=== PATIENT | female | born 1940 | race Caucasian/White ===

== ENCOUNTER 2018-12-20 19:37 | Emergency (ER) | payer MEDICARE, BC ==
--- NOTE | 2018-12-20 20:09 | EDM.PDOC ---
ED HPI GENERAL MEDICAL PROBLEM - General Chief Complaint: Cardiovascular Problem Stated Complaint: HIGH BP Time Seen by Provider: 12/20/18 20:07 Source of Information: Reports: Patient History Limitations: Reports: No Limitations - History of Present Illness INITIAL COMMENTS - FREE TEXT/NARRATIVE: c/o HBP and some chest heaviness today. presently feels better. Posterior Head Pain Score (Numeric/FACES): 5 - Related Data Allergies Allergy/AdvReac Type Severity Reaction Status Date / Time tizanidine [From Zanaflex] Allergy Itching Verified 12/20/18 20:18 Home Meds: Home Meds Aspirin [Yady Chewable Aspirin] 81 mg PO DAILY 12/20/18 [History] Calcium Carbonate/Vitamin D3 [Calcium 500+D Tablet Chew] 3 tab PO DAILY [History] Cinnamon Bark [Cinnamon] 600 mg PO BID 12/20/18 [History] Cyclobenzaprine [Flexeril] 5 mg PO TID PRN 12/20/18 [History] Levothyroxine [Synthroid] 88 mcg PO DAILY 12/20/18 [History] Lutein/Minerals/Vit A,C & E [Ocuvite] 1 tab PO DAILY 12/20/18 [History] Metoprolol Tartrate [Lopressor] 100 mg PO BID 12/20/18 [History] [place]-3/DHA/Epa/Fish Oil [Fish Oil 1,000 mg Softgel] 1 cap PO DAILY 12/20/18 [ History] Propylene Glycol/PEG 400/Pf [Systane 0.3-0.4% Eye Drop] 1 drop EYEBOTH QID 12/20 [History] cycloSPORINE [Restasis] 1 drop EYEBOTH Q48H 12/20/18 [History] Past Medical History HEENT History: Reports: Impaired Vision Other HEENT History: wears glasses Cardiovascular History: Reports: Hypertension Gastrointestinal History: Reports: Chronic Constipation [employer] OPERATOR History: Reports: Musculoskeletal History: Reports: Arthritis, Neck Pain, Chronic Endocrine/Metabolic History: Reports: Hyperthyroidism Social & Family History - Family History Family Medical History: Noncontributory ED ROS GENERAL - Review of Systems Review Of Systems: ROS reveals no pertinent complaints other than HPI. ED EXAM, GENERAL - Physical Exam Exam: See Below Exam Limited By: No Limitations General Appearance: Alert, WD/WN, Anxious, Mild Distress Eye Exam: Bilateral Eye: PERRL (pupils ER @ 4mm) Ears: Hearing Grossly Normal Throat/Mouth: Normal Voice, No Airway Compromise Head: Atraumatic Neck: Non-Tender, Full Range of Motion Respiratory/Chest: No Respiratory Distress Cardiovascular: Regular Rate, Rhythm GI/Abdominal: Soft, Non-Tender Neurological: Alert, Oriented, Normal Cognition, Normal Gait, No Motor/Sensory Deficits Psychiatric: Anxious Skin Exam: Warm, Dry, Normal Color Lymphatic: No Adenopathy Course - Vital Signs Last Recorded V/S: Last Vital Signs Temp 36.6 C 12/20/18 19:58 Pulse 83 12/20/18 19:58 Resp 18 12/20/18 19:58 BP 183/126 H 12/20/18 19:58 Pulse Ox 98 12/20/18 19:58 - Orders/Labs/Meds Orders: Active Orders 24 hr Category Date Time Status EKG Documentation Completion [RC] URGENT Care 12/20/18 19:59 Active Labs: Laboratory Tests 12/20/18 12/20/18 Range/Units 20:10 20:10 WBC 5.2 (5.0-10.0) 10^3/uL RBC 4.58 (4.2-5.4) 10^6/uL Hgb 13.7 (12.0-16.0) g/dL Hct 41.1 (37.0-47.0) % MCV 89.7 (80-100) fL MCH 29.9 (27.0-34.0) pg MCHC 33.3 (33.0-35.0) g/dL Plt Count 200 (150-450) 10^3/uL Neut % (Auto) 45.0 (42.2-75.2) % Lymph % (Auto) 37.8 (20.5-50.1) % [place] % (Auto) 11.8 H (2-8) % Eos % (Auto) 4.6 H (1.0-3.0) % Baso % (Auto) 0.8 (0.0-1.0) % Sodium 138 (135-145) mmol/L Potassium 3.5 L (3.6-5.0) mmol/L Chloride 103 (101-111) mmol/L Carbon Dioxide 27.0 (21.0-31.0) mmol/L Anion Gap 11.5 BUN 13 (7-18) mg/dL Creatinine 0.6 (0.6-1.3) mg/dL Est Cr Clr Drug Dosing 58.75 mL/min Estimated GFR (MDRD) > 60 BUN/Creatinine Ratio 21.66 Glucose 151 H (74-105) mg/dL Calcium 8.9 (8.4-10.2) mg/dl Total Bilirubin 0.5 (0.2-1.0) mg/dL AST 30 (10-42) IU/L ALT 37 (10-60) IU/L Alkaline Phosphatase 82 (42-121) IU/L Troponin I < 0.02 (0.00-0.02) ng/ml Total Protein 6.8 (6.7-8.2) g/dl Albumin 4.1 (3.2-5.5) g/dl Globulin 2.7 Albumin/Globulin Ratio 1.52 - Re-Assessments/Exams Free Text/Narrative Re-Assessment/Exam: 12/20/18 21:25 results discussed with pt who is conversing with niece. rpt 148/82 Departure - Departure Time of Disposition: 21:35 Disposition: Home, Self-Care 01 Condition: Good Clinical Impression: Hypertension Qualifiers: Hypertension type: unspecified secondary hypertension Qualified Code(s): I15.9 - Secondary hypertension, unspecified Instructions: Hypertension, [id number] Forms: ED Department Discharge Additional Instructions: 1) follow up with family doctor tomorrow 2) recheck if there is any change or concern - My Orders Last 24 Hours: My Active Orders 12/20/18 19:59 EKG Documentation Completion [RC] URGENT - Assessment/Plan Last 24 Hours: My Active Orders 12/20/18 19:59 EKG Documentation Completion [RC] URGENT
[2018-12-20 20:35] LABS: ANION GAP 11.5; CHLORIDE,CL 103 mmol/L (101-111); SODIUM,NA 138 mmol/L (135-145)
== END 2018-12-20 21:35 | disposition home or self-care (01) ==
LOC: DL.ED 19:37
DX: I15.9 Secondary hypertension, unspecified (principal); E05.90 Thyrotoxicosis, unspecified without thyrotoxic crisis or storm; Z79.899 Other long term (current) drug therapy; Z79.82 Long term (current) use of aspirin; Z88.8 Allergy status to other drugs, medicaments and biological substances
CPT/HCPCS: 36415; 71045; 80053; 84484; 85025; 93005; 99283-25

== ENCOUNTER 2020-02-03 15:02 | Emergency (ER) | payer MEDICARE, BC ==
[2020-02-03 16:05] LABS: ANION GAP 12.5 mEq/L (7-13); CHLORIDE,CL 102 mmol/L (98-107); SODIUM,NA 139 mmol/L (136-145)
--- NOTE | 2020-02-03 16:07 | CR ---
PROCEDURE INFORMATION: Exam: XR Chest, 1 View Exam date and time: 02/03/2020 3:33 PM Age: 79 years old Clinical indication: Chest pain; Type not specified TECHNIQUE: Imaging protocol: XR of the chest Views: 1 view. COMPARISON: CR Chest 1V Frontal 12/20/2018 8:56 PM FINDINGS: Lungs: Unremarkable. No consolidation. Pleural space: Unremarkable. No pleural effusion. No pneumothorax. Heart/Mediastinum: Mild cardiomegaly. Vasculature: Tortuous thoracic aorta. Bones/joints: Unremarkable. IMPRESSION: No acute process
--- NOTE | 2020-02-03 16:22 | EDM.PDOC ---
ED HPI GENERAL MEDICAL PROBLEM - General Chief Complaint: Chest Pain Stated Complaint: LIGHT CHEST PAINS Time Seen by Provider: 02/03/20 15:50 Source of Information: Reports: Patient, RN, RN Notes Reviewed History Limitations: Reports: No Limitations - History of Present Illness INITIAL COMMENTS - FREE TEXT/NARRATIVE: Patient presents to the ED via personal vehicle with complaints of chest pain. Per patient report, the pain in her chest started this morning. She describes this pain as a pressure which is localized to the midline chest, it does not radiate. She denies palpitations, shortness of breath, vision changes, cough, sore throat, fever, shaking chills, dyspepsia, nausea, vomiting, or diarrhea. She does attest to dysuria without hematuria. She states she has not taken any medications for this chest pain, with the exception of her normally prescribed medications. She states she has experienced this pain before. She denies any cardiac interventions, but does note she has had left heart catheterizations. Mid-Sternal Chest Pain Score (Numeric/FACES): 4 - Related Data Allergies Allergy/AdvReac Type Severity Reaction Status Date / Time tizanidine [From Zanaflex] Allergy Itching Verified 12/20/18 20:18 Home Meds: Home Meds Aspirin [Yady Chewable Aspirin] 81 mg PO DAILY 12/20/18 [History] Calcium Carbonate/Vitamin D3 [Calcium 500+D Tablet Chew] 3 tab PO DAILY 12/20/18 [History] Cinnamon Bark [Cinnamon] 600 mg PO BID 12/20/18 [History] Cyclobenzaprine [Flexeril] 5 mg PO TID PRN 12/20/18 [History] Levothyroxine [Synthroid] 88 mcg PO DAILY 12/20/18 [History] Lutein/Minerals/Vit A,C & E [Ocuvite] 1 tab PO DAILY 12/20/18 [History] Metoprolol Tartrate [Lopressor] 100 mg PO BID 12/20/18 [History] [place]-3/DHA/Epa/Fish Oil [Fish Oil 1,000 mg Softgel] 1 cap PO DAILY 12/20/18 [History] Propylene Glycol/PEG 400/Pf [Systane 0.3-0.4% Eye Drop] 1 drop EYEBOTH QID 12/20/18 [History] cycloSPORINE [Restasis] 1 drop EYEBOTH Q48H 12/20/18 [History] Past Medical History HEENT History: Reports: Impaired Vision Other HEENT History: wears glasses Cardiovascular History: Reports: Hypertension Gastrointestinal History: Reports: Chronic Constipation [employer] WORKER History: Reports: Musculoskeletal History: Reports: Arthritis, Neck Pain, Chronic Endocrine/Metabolic History: Reports: Hyperthyroidism Social & Family History - Family History Family Medical History: Noncontributory - Tobacco Use Tobacco Use Status *Q: Never Tobacco User Second Hand Smoke Exposure: No - Caffeine Use Caffeine Use: Reports: Coffee - Recreational Drug Use Recreational Drug Use: No ED ROS GENERAL - Review of Systems Review Of Systems: Comprehensive ROS is negative, except as noted in HPI. ED EXAM, GENERAL - Physical Exam Exam: See Below Exam Limited By: No Limitations General Appearance: Alert, WD/WN, No Apparent Distress Eye Exam: Bilateral Eye: EOMI, Normal Inspection, PERRL Throat/Mouth: Normal Inspection, Normal Voice, No Airway Compromise Neck: Normal Inspection, Supple, Non-Tender, Full Range of Motion Respiratory/Chest: No Respiratory Distress, Lungs Clear, Normal Breath Sounds, No Accessory Muscle Use, Chest Non-Tender Cardiovascular: Normal Peripheral Pulses, Regular Rate, Rhythm, No Edema, No Gallop, No JVD, No Murmur, No Rub Peripheral Pulses: 2+: Radial (L), Radial (R) GI/Abdominal: Normal Bowel Sounds, Soft, No Distention, No Mass, Pelvis Stable, Tender (Suprapubic tenderness) (Female) Exam: Deferred Rectal (Female) Exam: Deferred Back Exam: Normal Inspection, Full Range of Motion. No: CVA Tenderness (L), CVA Tenderness (R) Extremities: Normal Inspection, Normal Range of Motion, Non-Tender, No Pedal Edema, Normal Capillary Refill Neurological: Alert, Oriented, CN II-XII Intact, Normal Cognition, Normal Gait, No Motor/Sensory Deficits Psychiatric: Normal Affect, Normal Mood Skin Exam: Warm, Dry, Intact, Normal Color, No Rash. No: Ecchymosis, Erythema, Mottled, Pallor, Petechiae, Rash #1 Interpretation EKG Date: 02/03/20 Time: 15:13 Rhythm: NSR Rate (Beats/Min): 75 [place]: Normal P-Wave: Present QRS: Normal ST-T: Depressed (Minimal depression in V4, V5) QT: Normal Comparison: No Change EKG Interpretation Comments: SR; S-wave present in aVL and V6; No evidence of acute ischemia. Course - Vital Signs Last Recorded V/S: Last Vital Signs Temp 98.5 F 02/03/20 21:34 Pulse 78 02/03/20 21:34 Resp 20 02/03/20 21:34 BP 154/92 H 02/03/20 21:34 Pulse Ox 93 L 02/03/20 21:34 - Orders/Labs/Meds Orders: Active Orders 24 hr Category Date Time Status CULTURE URINE [RM] Stat Lab 02/03/20 15:13 Received Labs: Laboratory Tests 02/03/20 02/03/20 02/03/20 Range/Units 15:13 15:21 15:21 WBC 11.2 H (5.0-10.0) 10^3/uL RBC 4.26 (4.2-5.4) 10^6/uL Hgb 13.0 (12.0-16.0) g/dL Hct 38.3 (37.0-47.0) % MCV 89.9 (80-100) fL MCH 30.5 (27.0-34.0) pg MCHC 33.9 (33.0-35.0) g/dL Plt Count 194 (150-450) 10^3/uL Neut % (Auto) 70.5 (42.2-75.2) % Lymph % (Auto) 19.1 L (20.5-50.1) % [place] % (Auto) 8.6 H (2-8) % Eos % (Auto) 1.6 (1.0-3.0) % Baso % (Auto) 0.2 (0.0-1.0) % Sodium (136-145) mmol/L Potassium (3.5-5.1) mmol/L Chloride (98-107) mmol/L Carbon Dioxide (21-32) mmol/L Anion Gap (7-13) mEq/L BUN (7-18) mg/dL Creatinine (0.55-1.02) mg/dL Est Cr Clr Drug Dosing mL/min Estimated GFR (MDRD) BUN/Creatinine Ratio (No establ ref range) Glucose (74-99) mg/dL Lactic Acid 0.6 (0.4-2.0) mmol/L Calcium (8.5-10.1) mg/dL Phosphorus (2.6-4.7) mg/dL Magnesium (1.8-2.4) mg/dL Total Bilirubin (0.2-1.0) mg/dL AST (15-37) U/L ALT (14-59) U/L Alkaline Phosphatase (46-116) U/L Troponin I (0.000-0.056) ng/mL Total Protein (6.4-8.2) g/dL Albumin (3.4-5.0) g/dL Globulin Albumin/Globulin Ratio Urine Color Yellow (YELLOW) Urine Appearance Clear (CLEAR) Urine pH 7.5 (5.0-9.0) Ur Specific [place] 1.020 (1.005-1.030) Urine Protein Negative (NEGATIVE) Urine Glucose (UA) Negative (NEGATIVE) Urine Ketones Negative (NEGATIVE) Urine Occult Blood Trace-intact H (NEGATIVE) Urine Nitrite Negative (NEGATIVE) Urine Bilirubin Negative (NEGATIVE) Urine Urobilinogen 0.2 (0.2-1.0) mg/dL Ur Leukocyte Esterase Small H (NEGATIVE) Urine RBC 10-20 H /HPF Urine WBC 5-10 H (0-5/HPF) /HPF Ur Epithelial Cells Few (NOT SEEN) /HPF Amorphous Sediment Few (NOT SEEN) /HPF Urine Bacteria Few (0-FEW/HPF) /HPF Urine Mucus Rare (NOT SEEN) /LPF 02/03/20 Range/Units 15:21 WBC (5.0-10.0) 10^3/uL RBC (4.2-5.4) 10^6/uL Hgb (12.0-16.0) g/dL Hct (37.0-47.0) % MCV (80-100) fL MCH (27.0-34.0) pg MCHC (33.0-35.0) g/dL Plt Count (150-450) 10^3/uL Neut % (Auto) (42.2-75.2) % Lymph % (Auto) (20.5-50.1) % [place] % (Auto) (2-8) % Eos % (Auto) (1.0-3.0) % Baso % (Auto) (0.0-1.0) % Sodium 139 (136-145) mmol/L Potassium 3.5 (3.5-5.1) mmol/L Chloride 102 (98-107) mmol/L Carbon Dioxide 28 (21-32) mmol/L Anion Gap 12.5 (7-13) mEq/L BUN 12 (7-18) mg/dL Creatinine 0.83 (0.55-1.02) mg/dL Est Cr Clr Drug Dosing 40.79 mL/min Estimated GFR (MDRD) > 60 BUN/Creatinine Ratio 14.5 (No establ ref range) Glucose 120 H (74-99) mg/dL Lactic Acid (0.4-2.0) mmol/L Calcium 9.4 (8.5-10.1) mg/dL Phosphorus 3.4 (2.6-4.7) mg/dL Magnesium 1.8 (1.8-2.4) mg/dL Total Bilirubin 0.8 (0.2-1.0) mg/dL AST 26 (15-37) U/L ALT 53 (14-59) U/L Alkaline Phosphatase 102 (46-116) U/L Troponin I < 0.017 (0.000-0.056) ng/mL Total Protein 6.7 (6.4-8.2) g/dL Albumin 3.5 (3.4-5.0) g/dL Globulin 3.2 Albumin/Globulin Ratio 1.1 Urine Color (YELLOW) Urine Appearance (CLEAR) Urine pH (5.0-9.0) Ur Specific [place] (1.005-1.030) Urine Protein (NEGATIVE) Urine Glucose (UA) (NEGATIVE) Urine Ketones (NEGATIVE) Urine Occult Blood (NEGATIVE) Urine Nitrite (NEGATIVE) Urine Bilirubin (NEGATIVE) Urine Urobilinogen (0.2-1.0) mg/dL Ur Leukocyte Esterase (NEGATIVE) Urine RBC /HPF Urine WBC (0-5/HPF) /HPF Ur Epithelial Cells (NOT SEEN) /HPF Amorphous Sediment (NOT SEEN) /HPF Urine Bacteria (0-FEW/HPF) /HPF Urine Mucus (NOT SEEN) /LPF Meds: Medications Discontinued Medications Generic Name Dose Route Start Last Admin Trade Name Freq PRN Reason Stop Dose Admin Trimethoprim/Sulfamethoxazole 1 tab 02/03/20 18:24 02/03/20 18:35 Septra Ds PO 02/03/20 18:25 1 tab ONETIME ONE Administration - Radiology Interpretation Free Text/Narrative:: [facility] [place] [facility] Final Radiology Report Call: [phone] assistance Online chat: [email or web address] Name: SRINATH PÉREZ Age: 79Years F Date: 02/03/2020 SSN: -- : [id number] Study: CR CHEST 1V FRONTAL Requesting Physician: Katy Sewell Images: 1 Addl Studies: Provided Clinical History: Chest pain Contrast: Contrast Medium: Contrast Amount: Contrast Method: CONFIDENTIALITY STATEMENT This report is intended only for use by the referring physician, and only in accordance with law. If you received this in error, call [phone]. Page 1 of 1 PROCEDURE INFORMATION: Exam: XR Chest, 1 View Exam date and time: 02/03/2020 3:33 PM Age: 79 years old Clinical indication: Chest pain; Type not specified TECHNIQUE: Imaging protocol: XR of the chest Views: 1 view. COMPARISON: CR Chest 1V Frontal 12/20/2018 8:56 PM FINDINGS: Lungs: Unremarkable. No consolidation. Pleural space: Unremarkable. No pleural effusion. No pneumothorax. Heart/Mediastinum: Mild cardiomegaly. Vasculature: Tortuous thoracic aorta. Bones/joints: Unremarkable. IMPRESSION: No acute process Thank you for allowing us to participate in the care of your patient. Dictated and Authenticated by: Kush Nash MD 02/03/2020 4:07 PM Central Time ([place] & [place]) - Re-Assessments/Exams Free Text/Narrative Re-Assessment/Exam: 02/03/20 16:23 Workup negative for acute ischemia. Patient states she is currently resting comfortably and that the pressure in her chest is gone. She denies dysuria when leaving a specimen for a UA but continues to state suprapubic tenderness. 02/03/20 18:16 Daughter is driving from [place], [place] voicing concerns about mother being alone. Will place patient in extended stay and treat for acute cystitis. Patient given one dose of Bactrim DS here. Departure - Departure Time of Disposition: 23:00 Disposition: Home, Self-Care 01 Condition: Good Clinical Impression: UTI (urinary tract infection), uncomplicated Instructions: Urinary Tract Infection, Adult, Ljry-[id number], Sulfamethoxazole; Trimethoprim, SMX-TMP tablets Referrals: Didier Ray MD [Primary Care Provider] - Forms: ED Department Discharge Additional Instructions: Rx: Bactrim DS Drink plenty of fluids to stay hydrated. Take all of antibiotics until gone. Return to primary care provider or ED with any fever, shaking chills, or inability to void. Sepsis Event Note (ED) - Evaluation Sepsis Screening Result: No Definite Risk - My Orders Last 24 Hours: My Active Orders 02/03/20 15:13 CULTURE URINE [RM] Stat - Assessment/Plan Last 24 Hours: My Active Orders 02/03/20 15:13 CULTURE URINE [RM] Stat
[2020-02-03] MEDS ORDERED: Sulfamethoxazole/Trimethoprim 800-160 MG Tab PO ONE (18:24)
== END 2020-02-03 21:45 | disposition home or self-care (01) ==
LOC: DL.ED 15:02
DX: N39.0 Urinary tract infection, site not specified (principal); I10 Essential (primary) hypertension; M19.90 Unspecified osteoarthritis, unspecified site; E05.90 Thyrotoxicosis, unspecified without thyrotoxic crisis or storm; Z79.899 Other long term (current) drug therapy; Z88.8 Allergy status to other drugs, medicaments and biological substances; Z79.82 Long term (current) use of aspirin
CPT/HCPCS: 36415; 71045; 80053; 81001; 83605; 83735; 84100; 84484; 85025; 87086; 93005; 99285; A9270

== ENCOUNTER 2021-02-24 06:18 | Day surgery (SDC) | payer MEDICARE, BC ==
[~2021-02-24 06:18] MED LIST: Dextrose 5%-0.45% NaCl 1,000 ML IV SCH; Sodium Chloride 0.9% 10 ML Syringe FLUSH PRN
[2021-02-24] MEDS ORDERED: fentaNYL 100 MCG/2 ML SDV IV ONE ×3 (06:19→07:39)
[2021-02-24] MEDS ORDERED: Midazolam 1 MG/ML 2 ML SDV IV ONE ×2 (06:19→07:38)
[2021-02-24] MEDS ORDERED: fentaNYL 100 MCG/2 ML SDV ONE (06:59)
[2021-02-24] MEDS ORDERED: Midazolam 1 MG/ML 2 ML SDV ONE (06:59)
--- NOTE | 2021-02-24 09:32 | OR ---
DATE: 02/24/2021 PROCEDURE: Esophagogastroduodenoscopy and multiple pinch biopsies. INSTRUMENT USED: [id number] Olympus video panendoscope. PREMEDICATIONS: No oral or topical anesthesia used. Fentanyl 75 mcg intravenous, Versed 2 mg intravenous. Nasal O2 cannula. The procedure was done under pulse oximetry, BP recording, and digital media intern. INDICATION: The patient with persistent longstanding abdominal pain, dyspepsia as well as bloating, unexplained and not responsive to medical measures, on long- term aspirin and also on PPI now. Esophagogastroduodenoscopy is performed for detection of any active erosive lesions, Williamson esophagus and/or malignancy also under consideration, H pylori status to be determined, small bowel biopsies to be obtained for celiac disease, endoscopic hemostasis therapy if needed. PROCEDURE IN DETAIL: The scope was passed with ease. Adequate visualization of the esophagus was made from proximal to distal areas. No upper esophageal lesions identified. No distal esophageal stricture. No uphill or downhill esophageal varices. No Isa-Donovan tear. No evidence of erosive esophagitis by Glen criteria. No esophageal polyp or tumor mass identified. Z-line was seen at around 40 cm distal to the oral verge. No proximal gastric varices noted. Gastric fundus examination by retroflexion showed no polypoid lesions. No gastric ulcer, malignant mass, or vascular ectasia identified. Duodenal bulb showed no ulcer. Visualized second part of the duodenum was unremarkable. Scattered gastric antral erosions were noted without bleeding from them. Multiple pinch biopsies, 4 in number, were taken from different areas of the second part of the duodenum and tissues were also obtained from the duodenal bulb at 9 and 12 o'clock positions and sent for any histopathologic evidence of celiac disease. Multiple pinch biopsies were also obtained from the gastric antrum and proximal body, and sent for PyloriTek test for H pylori and histopathology. No bleeding was noted from any of the visualized areas at the completion of examination. Photographs were taken of the duodenal bulb, gastric antrum, fundus, and distal esophagus. IMPRESSION: Gastric antral erosions. The patient tolerated the procedure well. [facility] /[id number]
== END 2021-02-24 09:55 | disposition home or self-care (01) ==
LOC: DL.ENDO 06:18
PROVIDERS: ATTEND Internal Medicine Gastroenterology
DX: K29.50 Unspecified chronic gastritis without bleeding (principal); K25.9 Gastric ulcer, unspecified as acute or chronic, without hemorrhage or perforation; K31.89 Other diseases of stomach and duodenum; K29.80 Duodenitis without bleeding; Z01.812 Encounter for preprocedural laboratory examination; Z20.822 Contact with and (suspected) exposure to COVID-19
CPT/HCPCS: 43239; 87077; J2250; J3010; J7042; U0002; 88305; 88342

== ENCOUNTER → 2021-04-15 | Day surgery (SDC) | payer MEDICARE, BC ==
[~2021-04-15] MED LIST changes: +Midazolam 1 MG/ML 2 ML SDV ONE; -Sodium Chloride 0.9% 10 ML Syringe FLUSH PRN; +Sodium Chloride 0.9% 10 ML Syringe FLUSH SCH; +fentaNYL 100 MCG/2 ML SDV ONE
== END ==
LOC: DL.ENDO 05:46
PROVIDERS: ATTEND Internal Medicine Gastroenterology
DX: R14.0 Abdominal distension (gaseous) (principal); R19.5 Other fecal abnormalities; Z53.09 Procedure and treatment not carried out because of other contraindication; U07.1 COVID-19
CPT/HCPCS: U0002

== ENCOUNTER 2021-10-22 16:16 | Emergency (ER) | payer MEDICARE, BC ==
[2021-10-22 17:03] LABS: ANION GAP 11.4 mEq/L (7-13)
[2021-10-22] MEDS ORDERED: Iopamidol 612 MG/ML 100 ML Bottle IVPUSH ONE (17:40)
== END 2021-10-22 20:06 | disposition home or self-care (01) ==
LOC: DL.ED 16:16
DX: K52.9 Noninfective gastroenteritis and colitis, unspecified (principal); K57.32 Diverticulitis of large intestine without perforation or abscess without bleeding; N31.9 Neuromuscular dysfunction of bladder, unspecified; E78.00 Pure hypercholesterolemia, unspecified; I10 Essential (primary) hypertension; Z86.73 Personal history of transient ischemic attack (TIA), and cerebral infarction without residual deficits; Z20.822 Contact with and (suspected) exposure to COVID-19; Z88.8 Allergy status to other drugs, medicaments and biological substances
CPT/HCPCS: 36415; 51702; 51798; 74177; 80053; 81001; 82150; 83605; 83690; 83735; 84484; 85025; 86140; 93005; 99284; Q9967; U0002

== ENCOUNTER 2022-05-25 23:44 | Emergency (ER) | payer MEDICARE, BC ==
[2022-05-26] MEDS ORDERED: LORazepam 0.5 MG Tab PO ONE (00:59)
[2022-05-26 01:05] LABS: ANION GAP 11.3 mEq/L (7-13)
== END 2022-05-26 01:48 | disposition home or self-care (01) ==
LOC: DL.ED 23:44
DX: I15.9 Secondary hypertension, unspecified (principal); E05.90 Thyrotoxicosis, unspecified without thyrotoxic crisis or storm; Z88.8 Allergy status to other drugs, medicaments and biological substances; Z79.82 Long term (current) use of aspirin; Z79.899 Other long term (current) drug therapy; Z86.73 Personal history of transient ischemic attack (TIA), and cerebral infarction without residual deficits
CPT/HCPCS: 36415; 71045; 80053; 84484; 85025; 93005; 93010; 99283; 99284; A9270

== ENCOUNTER 2024-04-11 08:56 | Inpatient (IN) | payer MEDICARE, BC ==
[2024-04-11] MEDS ORDERED: Sodium Chloride 0.9% 10 ML Syringe FLUSH PRN (09:28)
[2024-04-11] MEDS: LORazepam 2 MG/ML SDV IVPUSH ONE (09:43)
[2024-04-11 09:44] LABS: BASOPHILS PERCENT AUTO 0.6 % (0.0-1.0); HEMATOCRIT 37.3 % (37.0-47.0); HEMOGLOBIN 13.4 g/dL (12.0-16.0); MEAN CORPUSCULAR HEMOGLOBIN 31.3 pg (27.0-34.0); MEAN CORPUSCULAR HGB CONC 35.9 g/dL (33.0-35.0); MEAN CORPUSCULAR VOLUME 87.1 fL (80-100); MONOCYTES PERCENT AUTO 13.4 % (2-8); PLATELET COUNT,PLT 227 10^3/uL (150-450); RED BLOOD CELL COUNT 4.28 10^6/uL (4.2-5.4); WHITE BLOOD CELL COUNT,WBC 5.1 10^3/uL (5.0-10.0)
[2024-04-11 10:05] LABS: PROTHROMBIN TIME 10.6 SEC (9.0-12.0); PTT,PARTIAL THROMBOPLSTIN TIME 27.5 SEC (22.0-34.0)
[2024-04-11 10:16] LABS: A/G RATIO 1.3; ALBUMIN 3.9 g/dL (3.4-5.0); ANION GAP 11.7 mEq/L (7-13); BUN/CREATININE RATIO 16.4 (No establ ref range); CREATININE 0.73 mg/dL (0.55-1.02); EST CRCL DRUG DOSING (CG) 42.52 mL/min; MAGNESIUM 1.6 mg/dL (1.8-2.4); POTASSIUM,K 3.7 mmol/L (3.5-5.1); PROTEIN TOTAL,TP 6.9 g/dL (6.4-8.2); T4 FREE 1.2 ng/dL (0.76-1.46); TSH ULTRASENSITIVE 1.47 uIU/mL (0.36-3.74)
[2024-04-11] MEDS: Magnesium Sulfate/Water Premix 2 GM in Premix Bag 1 BAG IV ONE (11:15)
[2024-04-11] MEDS: Sodium Chloride 0.9% 1,000 ML IV ONE (11:15)
[2024-04-11] MEDS ORDERED: Ondansetron 4 MG/2 ML SDV IVPUSH PRN (12:30)
[2024-04-11] MEDS ORDERED: Acetaminophen 325 MG Tab PO PRN (12:30)
[2024-04-11] MEDS ORDERED: oxyCODONE 5 MG Tab PO PRN (12:30)
[2024-04-11] MEDS ORDERED: Albuterol/Ipratropium 3.0-0.5 MG/3 ML Neb Soln NEB PRN (12:30)
[2024-04-11] MEDS ORDERED: Non-Formulary Medication 1 Each (Cyclosporine [Restasis] 1 EACH Each) EYEBOTH SCH (13:15)
[2024-04-11] MEDS: Aspirin 81 MG Tab.Chew PO SCH (14:48)
[2024-04-11] MEDS: Pantoprazole 40 MG Tab.CR PO SCH (14:48)
[2024-04-11] MEDS: Lutein/Minerals/Vit A,C & E Tab PO SCH (14:48)
[2024-04-11] MEDS: Polyethylene Glycol 3350 Powder 17 GM Packet PO SCH (14:48)
[2024-04-11] MEDS: Enoxaparin 40 MG/0.4 ML Syringe SUBCUT SCH (14:48)
[2024-04-11] MEDS: Levothyroxine 88 MCG Tab PO SCH (14:49)
[2024-04-11] MEDS: Metoprolol Tartrate 50 MG Tab PO SCH (14:50)
[2024-04-11] MEDS: Cholecalciferol (Vitamin D3) 25 MCG Tab PO SCH (14:51)
[2024-04-11] MEDS: Sodium Chloride 0.9% 1,000 ML IV SCH (14:58)
[2024-04-11 15:24] LABS: APPEARANCE,URINE CLEAR (CLEAR); BILIRUBIN,URINE NEGATIVE (NEGATIVE); COLOR,URINE YELLOW (YELLOW); GLUCOSE,URINE NEGATIVE (NEGATIVE); KETONES,URINE TRACE (NEGATIVE); LEUKOCYTE ESTERASE,URINE NEGATIVE (NEGATIVE); NITRITE,URINE NEGATIVE (NEGATIVE); OCCULT BLOOD,URINE TRACE-INTACT (NEGATIVE); PROTEIN,URINE NEGATIVE (NEGATIVE); UROBILINOGEN,URINE 0.2 mg/dL (0.2-1.0)
[2024-04-11 15:55] LABS: WBC,URINE 0-5 /HPF (0-5/HPF)
[2024-04-11 15:56] LABS: BACTERIA,URINE FEW /HPF (0-FEW/HPF); EPITHELIAL CELLS,URINE FEW /HPF (NOT SEEN); MUCUS,URINE FEW /LPF (NOT SEEN)
[2024-04-11 18:11] LABS: ANION GAP 9.3 mEq/L (7-13); CALCIUM 8.2 mg/dL (8.5-10.1); CREATININE 0.72 mg/dL (0.55-1.02); EST CRCL DRUG DOSING (CG) 43.11 mL/min; POTASSIUM,K 4.3 mmol/L (3.5-5.1)
[2024-04-12 06:31] LABS: BASOPHILS PERCENT AUTO 0.5 % (0.0-1.0); EOSINOPHILS PERCENT AUTO 4.3 % (1.0-3.0); HEMOGLOBIN 11.3 g/dL (12.0-16.0); MEAN CORPUSCULAR HEMOGLOBIN 30.7 pg (27.0-34.0); MEAN CORPUSCULAR HGB CONC 34.2 g/dL (33.0-35.0); MEAN CORPUSCULAR VOLUME 89.7 fL (80-100); MONOCYTES PERCENT AUTO 18.5 % (2-8); NEUTROPHILS PERCENT AUTO 40.7 % (42.2-75.2); PLATELET COUNT,PLT 202 10^3/uL (150-450); RED BLOOD CELL COUNT 3.68 10^6/uL (4.2-5.4); WHITE BLOOD CELL COUNT,WBC 4.2 10^3/uL (5.0-10.0)
[2024-04-12 06:47] LABS: ANION GAP 9.3 mEq/L (7-13); CALCIUM 8.3 mg/dL (8.5-10.1); CREATININE 0.67 mg/dL (0.55-1.02); EST CRCL DRUG DOSING (CG) 46.32 mL/min; POTASSIUM,K 4.3 mmol/L (3.5-5.1)
[2024-04-12] MEDS: WHEAT DEXTRIN PO SCH (14:14)
[2024-04-13 06:21] LABS: ANION GAP 10.3 mEq/L (7-13); CALCIUM 8.7 mg/dL (8.5-10.1); CREATININE 0.64 mg/dL (0.55-1.02); EST CRCL DRUG DOSING (CG) 48.49 mL/min; POTASSIUM,K 4.3 mmol/L (3.5-5.1)
== END 2024-04-13 13:00 | disposition home or self-care (01) | DRG 640 ==
LOC: DL.ED 08:56 → DL.MS 11:25
PROVIDERS: ADMIT Internal Medicine; ATTEND Internal Medicine
DX: E87.1 Hypo-osmolality and hyponatremia (principal); E86.0 Dehydration; G92.8 Other toxic encephalopathy; E05.90 Thyrotoxicosis, unspecified without thyrotoxic crisis or storm; H54.7 Unspecified visual loss; I10 Essential (primary) hypertension; K59.09 Other constipation; Z79.890 Hormone replacement therapy; K29.70 Gastritis, unspecified, without bleeding; Z79.2 Long term (current) use of antibiotics; E78.5 Hyperlipidemia, unspecified; Z88.5 Allergy status to narcotic agent; F41.9 Anxiety disorder, unspecified; H26.9 Unspecified cataract; K21.9 Gastro-esophageal reflux disease without esophagitis; T43.225A Adverse effect of selective serotonin reuptake inhibitors, initial encounter; E78.00 Pure hypercholesterolemia, unspecified; M19.90 Unspecified osteoarthritis, unspecified site; M81.0 Age-related osteoporosis without current pathological fracture; G89.29 Other chronic pain; E03.9 Hypothyroidism, unspecified; Z98.890 Other specified postprocedural states; Z85.828 Personal history of other malignant neoplasm of skin; Y92.89 Other specified places as the place of occurrence of the external cause; Z86.19 Personal history of other infectious and parasitic diseases; Z88.8 Allergy status to other drugs, medicaments and biological substances; Z79.82 Long term (current) use of aspirin; Z79.899 Other long term (current) drug therapy; Z98.49 Cataract extraction status, unspecified eye; Z94.89 Other transplanted organ and tissue status; Z90.49 Acquired absence of other specified parts of digestive tract; Z90.89 Acquired absence of other organs; Z90.710 Acquired absence of both cervix and uterus; Z86.73 Personal history of transient ischemic attack (TIA), and cerebral infarction without residual deficits
CPT/HCPCS: 36415; 70450; 80048; 80053; 81001; 82947; 83735; 83935; 84439; 84443; 84484; 85025; 85610; 85730; 87428-QW; 93005; 93010; 96374; 96375; 97165-GO; 99223; 99232; 99238; 99284; 99285-25; A9270-GY; J1650; J2060; J3475; J7030

== ENCOUNTER 2024-12-14 09:22 | Emergency (ER) | payer MEDICARE, BC ==
[2024-12-14] MEDS: Take Home: Cyclobenzaprine 10 MG Tab, 4 Tab Pack PO ONE (10:30)
== END 2024-12-14 10:30 | disposition home or self-care (01) ==
LOC: DL.ED 09:22
DX: I82.4Z9 Acute embolism and thrombosis of unspecified deep veins of unspecified distal lower extremity (principal); I83.93 Asymptomatic varicose veins of bilateral lower extremities; E78.00 Pure hypercholesterolemia, unspecified; I10 Essential (primary) hypertension; Z88.8 Allergy status to other drugs, medicaments and biological substances; Z88.5 Allergy status to narcotic agent; Z88.1 Allergy status to other antibiotic agents; Z79.899 Other long term (current) drug therapy; Z79.82 Long term (current) use of aspirin; Z86.73 Personal history of transient ischemic attack (TIA), and cerebral infarction without residual deficits
CPT/HCPCS: 99283; A9270